=== PATIENT | male | born 1970 | race Caucasian/White ===

== ENCOUNTER 2017-04-10 08:00 | Outpatient (CLI) | payer BC ==
[2017-06-02] MEDS ORDERED: COZAAR100 MG PO (10:37)
[2017-06-02] MEDS ORDERED: OMEPRAZOLE20 M1 PO (10:38)
[2017-06-05 09:49] VITALS: BMI 28.8
== END 2017-04-10 23:59 | disposition home or self-care (01) ==
LOC: D.NM 08:00
DX: R10.9 Unspecified abdominal pain (principal)

== ENCOUNTER 2017-06-05 09:05 | Day surgery (SDC) | payer BC ==
[2017-06-02 10:38] LABS: BASOPHILS 0.3 % (0-2); EOSINOPHILS 1.9 % (0-7); HEMATOCRIT 45.1 % (42.0-54.0); LYMPHOCYTES 28.9 % (15-50); MCH 33.7 pg (26.0-34.0); MCHC 35.5 g/dL (31.0-37.0); MCV 94.9 fL (80.0-100.0); MEAN PLATELET VOLUME 10.5 fL (7.4-10.4); MONOCYTES 8.9 % (2-11); PLATELET COUNT 160 10x3/uL (130-400); RBC 4.75 10x6/uL (4.20-6.10); WBC 5.8 10x3/uL (4.8-10.8)
[2017-06-02 10:46] LABS: APTT 25.8 SECONDS (22.8-39.4); INR 1.02 (0.85-1.17)
[2017-06-02 11:07] LABS: ANION GAP 14.1 mmol/L (8-16); CALCIUM 8.9 mg/dL (8.5-10.1); CREATININE - SERUM 1.2 mg/dL (0.6-1.3); POTASSIUM - SERUM 4.1 mmol/L (3.5-5.1)
[~2017-06-05] VITALS: Ht 188 cm; Wt 101.6 kg
[~2017-06-05 09:05] MED LIST: COZAAR100 MG PO; OMEPRAZOLE20 M1 PO
[2017-06-05 09:49] VITALS: BP 139/91; Ht 188 cm; Wt 101.6 kg
[2017-06-05] MEDS ORDERED: HYDROCODON-ACE1 EAC7 PO (13:00)
== END 2017-06-05 15:00 | disposition home or self-care (01) ==
LOC: D.OPS 09:05
PROVIDERS: Anesthesiology
DX: K82.8 Other specified diseases of gallbladder (principal); I10 Essential (primary) hypertension; E11.9 Type 2 diabetes mellitus without complications; K21.9 Gastro-esophageal reflux disease without esophagitis; Z01.812 Encounter for preprocedural laboratory examination